=== PATIENT | female | born 2000 | race African-American/Black ===

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

== ENCOUNTER 2024-04-01 11:46 | Emergency (ER) | payer OTHER | END 2024-04-01 15:05 | disposition home or self-care (01) | LOC: CSHERS 11:46 | DX: O03.4 Incomplete spontaneous abortion without complication (principal); O03.1 Delayed or excessive hemorrhage following incomplete spontaneous abortion | CPT/HCPCS: 36415; 36430; 76801; 80053; 81001; 84484; 84702; 85025; 86850; 86900; 86901; 93005; 96361; 96372; 96374; 99284; J2210; P9016 ==